=== PATIENT | female | born 1980 | race Caucasian/White ===

== ENCOUNTER 2024-01-27 09:27 | Emergency (ER) | payer BC, SELFPAY ==
[2024-01-27 09:36] VITALS: BP 135/64
--- NOTE | 2024-01-27 10:03 | ED.GENMED ---
History of Present Illness
General
Chief Complaint: Musculo-Skeletal Complaint
Source: patient and spouse
Time Seen by Provider: 01/27/24 09:46
History of Present Illness
History of Present Illness:
43-year-old female presenting to the emergency department for evaluation of atraumatic left shoulder pain that has been ongoing since October, acutely worse over the last 24 to 48 hours. States that she has previous bilateral shoulder reconstruction
performed by [facility]. Patient believes that she reinjured the shoulder while attempting to hold a door closed back in October. Patient went to her orthopedist on January 13 and was given a steroid taper which patient finished recently but states not
having any improvement of symptoms and last night into this morning was at its worst. Patient is also been taking NSAIDs/Tylenol and using topical agents. Patient was hoping to obtain an MRI by coming to the emergency department today. She denies
any fevers or infectious symptoms. Notes movement makes symptoms worse and she did not have any relief while using a sling.
Past History
Past History
ED Past Medical History: Psychiatric (ADHD)
ED Past Surgical History: Orthopedic and Other (Hernia repair)
Social History
Tobacco: Non-smoker
Alcohol: Occasional
Drug: None
Personal:
Living: with family
Employment: Employed
Review of Systems
Review of Systems
All Other Systems: ROS reviewed and negative except as documented in HPI and ROS
Phy Exam
Physical Exam
Physical Exam:
GENERAL: Alert , patient appears uncomfortable, tearful
EYE: conjunctiva clear
Head: Normocephalic atraumatic
NECK: Supple,
ENT: mmm.
LUNGS: no acute respiratory distress
NEUROLOGICAL: Alert and oriented
SKIN: Warm and dry, skin intact.
MUSCULOSKELETAL: Left upper extremity: No obvious deformity, erythema, edema, ecchymosis, abrasions or lacerations. Patient does allow for range of motion and has pain with movement. There is tenderness along the medial border of the scapula
extending up towards the trapezius musculature and extending into the posterior medial and anterior deltoid. Extremity is otherwise warm and well-perfused and neurovascularly intact
PSYCH: Normal and appropriate interaction.
Scores
Heart Failure Risk
Heart Failure Risk Score: Not Applicable
Heart Score for Chest Pain Patients
STEMI patient?: Not applicable
Withdrawal Assessment of Alcohol
Withdrawal Assessment Completed?: Not applicable
Course
Orders/Labs/Results
Orders:
Orders
01/27/24 10:02
Oxycodone/Acetaminophen [Percocet 5/325] 1 tablet PO NOW STA
Vital Signs
Initial and Last Documented VS:
Initial Vital Signs
Temp Pulse Resp BP Pulse Ox
98.8 F 91 20 135/64 97
01/27/24 09:36 01/27/24 09:36 01/27/24 09:36 01/27/24 09:36 01/27/24 09:36
Last Documented Vital Signs
Temp Pulse Resp BP Pulse Ox
98.8 F 91 20 135/64 97
01/27/24 09:36 01/27/24 09:36 01/27/24 09:36 01/27/24 09:36 01/27/24 09:36
MDM/Problems Addressed
Differential Diagnosis Includes:
Tendinitis, bursitis, I do not have concern for fracture or dislocation
MDM/Problems Addressed:
43-year-old female presenting to the emergency department for evaluation of acute on chronic left shoulder pain. Seen by orthopedics within the last 2 weeks, had an x-ray performed which did not show any acute abnormalities. Was given network associate for
steroid taper which she finished today but has not had any relief. Has taken NSAIDs/Tylenol and using topical agents with no relief. Explained to patient that we would be unable to obtain an MRI at this time as this is a nonemergent study. While
performing physical exam and going over potential treatment plans patient did receive a call from her orthopedic office who is going to arrange for a follow-up visit. In the meantime we will prescribe the patient a short-term course of Percocet for
pain control. [place] PDMP was reviewed which did not show any recent narcotic prescriptions. Patient is stable for discharge home.
*Pulse Oximetry
Patient hypoxic: no
*Critical Care Note
Total Time (30-74mins, 75-104mins- exclusive of procedures): Not Applicable
ED Attending Note
-
Portions of this chart may have been created with voice recognition software.� Occasional wrong word or��sound alike� substitutions may have occurred due to the inherent limitations of voice recognition software.
Discharge Plan
Departure
Patient Disposition: Home (Routine Discharge)
Date of Disposition: 01/27/24
Time of Disposition: 10:03
Patient with high blood pressure during this ER visit?: No
Discharge Problem:
Left shoulder pain
Instructions: Shoulder Pain ED
Prescriptions:
New
oxycodone-acetaminophen [Percocet] 5-325 mg tablet
1 tab PO Q6HPRN PRN (Reason: pain) Qty: 8 0RF
No Action
Bupropion HCl
120 mg PO DAILY
diphenhydramine HCl [Banophen] 25 MG capsule
25 mg PO Q4HPRN PRN (Reason: Itching, Rash) Qty: 10 0RF
prednisone 50 MG tablet
50 mg PO DAILY Qty: 5 0RF
epinephrine [EpiPen] 0.3 MG/0.3/SYRINGE auto-injector
0.3 mg IM .STAT PRN (Reason: Breathing Difficulty) Qty: 1 0RF
Interventions
Interventions:
ED- Fall Risk Assessment Last Done: 01/27/24 10:02
*Nursing Disposition Last Done: 01/27/24 10:14
ED-Musculoskeletal Assessment Last Done: 01/27/24 10:02
Discharge Date and Time
Discharge Date/Time: 01/27/24 10:15
Print Language: SETSWANA
[2024-01-27] MEDS: PERCOCET 5/325 1 TABLET PO (10:07)
== END 2024-01-27 10:15 | disposition home or self-care (01) ==
LOC: EMR 09:27
PROVIDERS: EMERGENCY PHYSICIAN Emergency Medicine; FAMILY PHYSICIAN Physician Assistant Medical
DX: G89.29 Other chronic pain (principal); M25.512 Pain in left shoulder
CPT/HCPCS: 99283